=== PATIENT | male | born 1950 | race Caucasian/White ===

== ENCOUNTER 2017-11-27 06:24 | Emergency (ER) | payer MEDICARE ==
[~2017-11-27] VITALS: Ht 177.8 cm; Wt 79.4 kg
[2017-11-27 07:48] LABS: Urine Bacteria NONE SEEN /hpf (None Seen); Urine Blood Negative /uL (Negative); Urine Specific Gravity 1.007 (1.001-1.035); Urine WBC <1 /hpf (0 - 3)
[2017-11-27 08:20] LABS: Albumin 2.8 g/dL (3.4-5.0); Anion Gap 8 (5-15); Basophils # (auto) 0.1 uL; Basophils % (auto) 1.2 % (0.0-2.0); Blood Urea Nitrogen 10 mg/dL (7-18); Calcium 7.8 mg/dL (8.5-10.1); Carbon Dioxide 23 mmol/L (21-32); Chloride 109 mmol/L (98-107); Eosinophils # (auto) 0.1 uL; Eosinophils % (auto) 2.4 % (0.0-7.0); Glucose 95 mg/dL (74-106); Hematocrit 42.1 % (41.0-53.0); Hemoglobin 14.6 g/dL (13.5-17.5); Lymphocytes % (auto) 20.9 % (10.0-50.0); Mean Corpuscular Hemoglobin 31.9 pg (28.0-32.0); Mean Corpuscular Hgb Conc. 34.7 g/dL (32.0-36.0); Monocytes # (auto) 0.5 uL; Monocytes % (auto) 10.1 % (0.0-12.0); Neutrophils # (auto) 3.1 uL; Neutrophils % (auto) 65.4 % (37.0-80.0); Nucleated Red Blood Cells % 0.1 %; Platelet Count (auto) 156 10^3/uL (140-450); Potassium 4.4 mmol/L (3.5-5.1); Red Blood Cells 4.57 10^6/uL (4.5-5.90); Sodium 140 mmol/L (136-145); White Blood Cell 4.8 10^3/uL (4.4-10.8)
[2017-11-27 08:22] LABS: Alanine Aminotransferase 20 U/L (16-61); BUN/Creatinine Ratio 19.2; GFR African American 205 mL/min; GFR Non-African American 170 mL/min
[2017-11-27] MEDS ORDERED: ONDANSETRON HCL 4 MG/2 ML VIAL IV ONE (08:30)
[2017-11-27] MEDS ORDERED: MORPHINE SULF INJ 2 MG/ML SYRINGE 1ML IV ONE (08:30)
[2017-11-27 08:35] LABS: Alkaline Phosphatase 85 U/L (45-117); Aspartate Aminotransferase 11 U/L (15-37); Bilirubin, Total 0.2 mg/dL (0.2-1.0); Total Protein 6.1 g/dL (6.4-8.2)
[2017-11-27 08:36] LABS: INR 1.09 (0.9-1.15); Partial Thromboplastin Time 28.2 sec (23.78-33.04); Prothrombin Time 11.6 sec (9.27-12.13)
[2017-11-27 09:04] VITALS: BP 129/82
== END 2017-11-27 10:26 | disposition home or self-care (01) ==
LOC: ER 06:37
DX: R07.89 Other chest pain (principal); Z86.73 Personal history of transient ischemic attack (TIA), and cerebral infarction without residual deficits; Z98.61 Coronary angioplasty status; R51 Headache
CPT/HCPCS: 36415; 70450; 71046; 80053; 81001; 84484; 85025; 85610; 85730; 93005; 96374; 96375; 99285; J2270; J2405

== ENCOUNTER 2019-06-22 13:33 | Emergency (ER) | payer OTHER ==
[~2019-06-22] VITALS: Ht 182.9 cm; Wt 79.4 kg
[2019-06-22 14:11] VITALS: BP 128/83
[2019-06-22] MEDS ORDERED: SODIUM CHLORIDE 0.9% 1,000 ML IVB ONE (14:31)
[2019-06-22] MEDS ORDERED: MORPHINE SULFATE 4 MG/ML SYR/VIAL IV ONE (14:45)
[2019-06-22] MEDS ORDERED: ASPirin 81 mg TAB PO ONE (14:45)
[2019-06-22] MEDS ORDERED: ONDANSETRON HCL 4 MG/2 ML VIAL IV ONE (14:45)
[2019-06-22 15:10] LABS: Basophils # (auto) 0.1 10 ^3/uL (0-0.2); Basophils % (auto) 1.4 % (0.0-2.0); Eosinophils # (auto) 0.1 10 ^3/uL (0-0.8); Eosinophils % (auto) 1.4 % (0.0-7.0); Hematocrit 42.8 % (41.0-53.0); Hemoglobin 14.8 g/dL (13.5-17.5); Lymphocytes # (auto) 1.3 10 ^3/uL (0.4-5.4); Mean Corpuscular Hemoglobin 32.6 pg (28.0-32.0); Mean Corpuscular Hgb Conc. 34.5 g/dL (32.0-36.0); Mean Corpuscular Volume 94.4 fL (80.0-100.0); Monocytes # (auto) 0.7 10 ^3/uL (0-1.3); Monocytes % (auto) 9.4 % (0.0-12.0); Neutrophils # (auto) 4.8 10 ^3/uL (1.6-8.6); Neutrophils % (auto) 68.8 % (37.0-80.0); Nucleated Red Blood Cells % 0.1 %; Platelet Count (auto) 202 10^3/uL (140-450); Red Blood Cells 4.53 10^6/uL (4.5-5.90); Red Cell Distribution Width 15.9 % (11.8-14.3)
[2019-06-22 15:29] LABS: Albumin 3.3 g/dL (3.4-5.0); Anion Gap 4 (5-15); Blood Urea Nitrogen 9 mg/dL (7-18); Calcium 8.3 mg/dL (8.5-10.1); Carbon Dioxide 25 mmol/L (21-32); Chloride 106 mmol/L (98-107); Glucose 97 mg/dL (74-106); Magnesium 2.2 mg/dL (1.6-2.6); Potassium 4.3 mmol/L (3.5-5.1); Sodium 135 mmol/L (136-145)
[2019-06-22 15:34] LABS: Alanine Aminotransferase 17 U/L (16-61); Alkaline Phosphatase 105 U/L (45-117); Aspartate Aminotransferase 13 U/L (15-37); BUN/Creatinine Ratio 15.8; Bilirubin, Total 0.3 mg/dL (0.2-1.0); GFR African American 174 mL/min; GFR Non-African American 144 mL/min; Total Protein 6.9 g/dL (6.4-8.2)
== END 2019-06-22 15:54 | disposition other institution (70) ==
LOC: EDBD 13:33 → EDUNIT# 13:33 → ER 13:33
DX: I24.9 Acute ischemic heart disease, unspecified (principal); I11.0 Hypertensive heart disease with heart failure; I50.9 Heart failure, unspecified; E78.5 Hyperlipidemia, unspecified; I25.2 Old myocardial infarction; Z86.73 Personal history of transient ischemic attack (TIA), and cerebral infarction without residual deficits
CPT/HCPCS: 36415; 71045; 80053; 83735; 84484; 85025; 93005; 96374; 96375; 99285; J2270; J2405; 96361

== ENCOUNTER 2019-10-15 12:37 | Inpatient (IN) | payer OTHER ==
[~2019-10-15] VITALS: Ht 180.3 cm; Wt 78.2 kg
[~2019-10-15 12:37] MED LIST: CLOP75TA28 PO; GABA300C10 PO; LEVE100012 PO; LISI-648 PO; METO25TA93 PO; NITR1SPR TL; PANT40TA2 PO; PHE100C PO; RANO500T PO; TAMS0.4C36 PO
[2019-10-15] MEDS ORDERED: SODIUM CHLORIDE 0.9% 1,000 ML IV ONE ×2 (12:38)
[2019-10-15 15:13] LABS: Basophils # (auto) 0.1 10 ^3/uL (0-0.2); Basophils % (auto) 0.6 % (0.0-2.0); Eosinophils # (auto) 0 10 ^3/uL (0-0.8); Hematocrit 36.6 % (41.0-53.0); Hemoglobin 12.4 g/dL (13.5-17.5); Lymphocytes # (auto) 0.9 10 ^3/uL (0.4-5.4); Lymphocytes % (auto) 7.7 % (10.0-50.0); Mean Corpuscular Hemoglobin 31.6 pg (28.0-32.0); Mean Corpuscular Hgb Conc. 33.8 g/dL (32.0-36.0); Mean Corpuscular Volume 93.6 fL (80.0-100.0); Monocytes # (auto) 1.1 10 ^3/uL (0-1.3); Monocytes % (auto) 9.2 % (0.0-12.0); Neutrophils # (auto) 10.2 10 ^3/uL (1.6-8.6); Neutrophils % (auto) 82.5 % (37.0-80.0); Platelet Count (auto) 184 10^3/uL (140-450); Red Blood Cells 3.91 10^6/uL (4.5-5.90); Red Cell Distribution Width 14.3 % (11.8-14.3); White Blood Cell 12.3 10^3/uL (4.4-10.8)
[2019-10-15 15:19] LABS: Albumin 3.4 g/dL (3.4-5.0); Calcium 8.7 mg/dL (8.5-10.1); Potassium 4.1 mmol/L (3.5-5.1)
[2019-10-15 15:24] LABS: BUN/Creatinine Ratio 39.1; Bilirubin, Total 0.8 mg/dL (0.2-1.0); Total Protein 6.8 g/dL (6.4-8.2)
[2019-10-15] MEDS ORDERED: NITROGLYCERIN 0.4 MG SL TAB SL PRN (17:15)
[2019-10-15] MEDS ORDERED: MORPHINE SULF INJ 2 MG/ML SYRINGE 1ML IV PRN (17:15)
[2019-10-15] MEDS ORDERED: ACETAMINOPHEN 325 MG TAB PO PRN (17:15)
[2019-10-15] MEDS: SODIUM CHLORIDE 0.9% 1,000 ML IV SCH (18:02)
[2019-10-15 18:30] LABS: INR 1.18 (0.9-1.15); Partial Thromboplastin Time 29.3 sec (23.64-32.05)
[2019-10-15] MEDS: MORPHINE SULF INJ 2 MG/ML SYRINGE 1ML IV PRN (21:15)
[2019-10-15 21:30] VITALS: BP 125/70
--- NOTE | 2019-10-15 21:30 | NUR ---
Opening note Telemetry admit from ER YOSELYN LEO admitted to Telemetry unit after SBAR received. Patient oriented to MEGHAN REID, RN primary RN, unit, room, bed, and unit policies regarding patient care and visiting hours. Patient now on continuous telemetry monitoring, tele box # 51 and telemetry reading on arrival to unit is NSR HR 86. Patient placed on bedside oxygen, weighed by bedscale and encouraged to call if they need something. All questions and concerns addressed, patient verbalized understanding. will continue to monitor.
--- NOTE | 2019-10-15 21:59 | NUR ---
pain Patient states pain 10/10. entire body. Medicated per md orders. Will continue to monitor.
[2019-10-15 23:19] VITALS: BP 125/70
[2019-10-16] MEDS: SODIUM CHLORIDE 0.9% 1,000 ML IV SCH ×2 (01:15→08:40)
[2019-10-16] MEDS: MORPHINE SULF INJ 2 MG/ML SYRINGE 1ML IV PRN (02:03)
[2019-10-16 02:27] LABS: Urine Bacteria MANY /hpf (None Seen); Urine Blood TRACE /uL (Negative); Urine Mucus FEW (None Seen); Urine Specific Gravity 1.023 (1.001-1.035); Urine WBC 110 /hpf (0 - 3)
--- NOTE | 2019-10-16 02:30 | NUR ---
Pain Patient states pain 10/10 entire body. mainly right side. Medicated per md orders. Will continue to monitor.
[2019-10-16] MEDS: HYDROcodone-ACET 10/325MG TAB PO PRN ×2 (03:25→22:35)
--- NOTE | 2019-10-16 03:30 | NUR ---
Pain Patient states Pain 610. Medicated with norco. Will continue to monitor.
--- NOTE | 2019-10-16 03:45 | NUR ---
Jones catheter insertion Patient assessed and determined to be in need of jones catheter. Order obtained from MD. Patient educated on catheter and reason for insertion. All questions answered. Jones catheter 16 guage Romanian inserted with clean sterile technique. Patient tolerated well. will continue to monitor.
--- NOTE | 2019-10-16 04:30 | NUR ---
Pain reassessment patient states pain 4/10. patient is comfortable. Will continue to monitor.
[2019-10-16 05:18] VITALS: BP 137/73
[2019-10-16 06:28] LABS: Basophils # (auto) 0 10 ^3/uL (0-0.2); Basophils % (auto) 0.4 % (0.0-2.0); Eosinophils # (auto) 0 10 ^3/uL (0-0.8); Eosinophils % (auto) 0.2 % (0.0-7.0); Hematocrit 31.2 % (41.0-53.0); Lymphocytes # (auto) 1.1 10 ^3/uL (0.4-5.4); Lymphocytes % (auto) 10.9 % (10.0-50.0); Mean Corpuscular Hemoglobin 32.6 pg (28.0-32.0); Mean Corpuscular Hgb Conc. 35.2 g/dL (32.0-36.0); Mean Corpuscular Volume 92.6 fL (80.0-100.0); Monocytes % (auto) 9.4 % (0.0-12.0); Neutrophils # (auto) 8.3 10 ^3/uL (1.6-8.6); Neutrophils % (auto) 79.1 % (37.0-80.0); Platelet Count (auto) 162 10^3/uL (140-450); Red Blood Cells 3.37 10^6/uL (4.5-5.90); Red Cell Distribution Width 13.8 % (11.8-14.3); White Blood Cell 10.5 10^3/uL (4.4-10.8)
[2019-10-16 06:47] LABS: Albumin 3.1 g/dL (3.4-5.0); Calcium 8.3 mg/dL (8.5-10.1); Potassium 4.1 mmol/L (3.5-5.1)
[2019-10-16 06:52] LABS: Bilirubin, Total 0.6 mg/dL (0.2-1.0); Total Protein 6.4 g/dL (6.4-8.2)
--- NOTE | 2019-10-16 07:30 | NUR ---
CLOSING NOTE ENDORSED CARE TO DAY SHIFT RN
--- NOTE | 2019-10-16 07:31 | NUR ---
Opening Shift Note Assumed care of patient, resting in bed with eyes closed. No S/S of distress/SOB or pain. Bed is set in lowest locked position with side rails up x 2 for safety and call light is within reach. Will continue to monitor for changes Q1hr and PRN.
[2019-10-16 08:34] VITALS: BP 116/75
--- NOTE | 2019-10-16 08:47 | NUR ---
Attempted to call family member, Jorge No answer, left message to voicemail to return call. Phone number and extension provided in message. Awaiting call back.
[2019-10-16] MEDS ORDERED: ENOXAPARIN SOD 40 MG/0.4 ML SYRINGE SC SCH (10:00)
--- NOTE | 2019-10-16 10:56 | NUR ---
Left second voicemail for family member Jorge to return call Awaiting call back. In addition, attempted to call Sharri, no answer, voicemail left with phone number and extension to hospital in message.
--- NOTE | 2019-10-16 11:34 | NUR ---
Cardiology consultation for pre-op medical clearance MD Culp at bedside for consultation. Per MD, patient is medically clear to proceed with surgical procedure from cardiology standpoint. Will proceed to update MD Monahan.
--- NOTE | 2019-10-16 12:18 | NUR ---
Spoke to patient's son, Jorge Dragan Patel on surgical procedure, all questions answered at this time.
[2019-10-16 12:23] VITALS: BP 165/69
--- NOTE | 2019-10-16 13:01 | NUR ---
MD Monahan and Jacinta at bedside for rounds Patient updated on plan of care and discussed plans for procedure today. All questions answered at this time.
--- NOTE | 2019-10-16 14:25 | NUR ---
Patient off unit taken down to pre-op for procedure No distress noted upon departure. IV flushed prior and is intact/patent. Care endorsed to ALBA Mullins.
[2019-10-16] MEDS: ceFAZolin 1GM/50ML 100 ML IV ONE (14:58)
[2019-10-16] MEDS ORDERED: ROCURONIUM 10MG/ML 10ML VIAL IV ONE (15:11)
[2019-10-16] MEDS ORDERED: ETOMIDATE (2MG/ML) 20ML VIAL IV ONE (15:11)
[2019-10-16] MEDS ORDERED: LIDOCAINE 1% (LOCAL ANESTH.) PF 5ml SDV ONE ×2 (15:11→15:37)
[2019-10-16] MEDS ORDERED: fentaNYL CITRATE 100 MCG/2 ML VL ONE (15:29)
[2019-10-16] MEDS ORDERED: STERILE WATER 10 ML ONE (15:44)
[2019-10-16] MEDS ORDERED: ePHEDrine SULFATE 50 MG/ML AMP ONE (15:44)
[2019-10-16] MEDS ORDERED: ONDANSETRON HCL 4 MG/2 ML VIAL IV PRN (15:45)
[2019-10-16] MEDS ORDERED: NALOXONE HCL 0.4 MG/ML VIAL IV PRN (15:45)
[2019-10-16] MEDS ORDERED: HYDROmorphone HCL 2 MG/ML VL IV PRN (15:45)
[2019-10-16] MEDS ORDERED: BUPIVACAINE W/ EPINEPH 0.25% INJ 50ML MDV ONE (15:46)
[2019-10-16] MEDS ORDERED: BUPIVACAINE 0.25% INJ 50ML VIAL ONE (15:46)
[2019-10-16] MEDS ORDERED: BUPIVACAINE W/ EPINEPH 0.25% INJ 50ML MDV ID ONE (16:00)
[2019-10-16] MEDS ORDERED: ACETAMINOPHEN 325 MG TAB PO PRN (16:15)
--- NOTE | 2019-10-16 17:15 | NUR ---
Patient returned to floor from PACU No distress/SOB or pain noted. Patient is currently resting in bed with eyes closed with bed set in lowest locked position, side rails up x 2 for safety and call light is within reach. Noted two aqua-seal dressings applied to right hip which are C/D/I, pedal pulses palpated bilaterally. Patient's breaths are even and unlabored, currently on 3L/min NC. Will continue to monitor patient.
[2019-10-16] MEDS: PANTOPRAZOLE 40 MG/10 ML VIAL INJ IV SCH (17:23)
[2019-10-16 17:28] VITALS: BP 133/75
[2019-10-16] MEDS: ceFAZolin 1GM/50ML 50 ML IV SCH ×2 (17:52→22:21)
[2019-10-16] MEDS: LACTATED RINGER'S 1,000 ML IV SCH (17:52)
--- NOTE | 2019-10-16 18:21 | NUR ---
Re-paged MD Culp To make MD aware of change in rhythm during procedure per report from MANAGER EXCHANGE. Awaiting call back at this time.
--- NOTE | 2019-10-16 19:30 | NUR ---
Opening Shift Note Assumed care of patient, sleeping when this RN first entered room. No S/S of distress/SOB or pain. Upon waking, pt looking about as if unsure of what he saw. Upon questioning, pt responded he was at home. RN stated, "No..." and pt immediately stated, "No, I am in the hospital" and immediately stated name of hospital. This RN instructed pt on POC and to call for assist PRN, will continue to monitor for changes Q1hr and PRN. Dressing on pt's R hip CD&I. Bed low with HOB in semi-Singh's position.
[2019-10-16 22:30] VITALS: BP 128/73
[2019-10-17] MEDS: LACTATED RINGER'S 1,000 ML IV SCH ×3 (02:09→21:58)
[2019-10-17] MEDS: ceFAZolin 1GM/50ML 50 ML IV SCH (04:15)
[2019-10-17] MEDS: MORPHINE SULF INJ 2 MG/ML SYRINGE 1ML IV PRN ×3 (05:10→21:50)
[2019-10-17] MEDS: ONDANSETRON HCL 4 MG/2 ML VIAL IV PRN ×2 (05:10→05:48)
[2019-10-17 05:30] VITALS: BP 128/74
[2019-10-17 06:43] LABS: Basophils # (auto) 0 10 ^3/uL (0-0.2); Basophils % (auto) 0.4 % (0.0-2.0); Eosinophils # (auto) 0.1 10 ^3/uL (0-0.8); Eosinophils % (auto) 0.9 % (0.0-7.0); Hematocrit 27.4 % (41.0-53.0); Hemoglobin 9.5 g/dL (13.5-17.5); Lymphocytes # (auto) 0.8 10 ^3/uL (0.4-5.4); Lymphocytes % (auto) 10.8 % (10.0-50.0); Mean Corpuscular Hemoglobin 32.3 pg (28.0-32.0); Mean Corpuscular Hgb Conc. 34.8 g/dL (32.0-36.0); Mean Corpuscular Volume 92.6 fL (80.0-100.0); Monocytes # (auto) 0.8 10 ^3/uL (0-1.3); Monocytes % (auto) 10.4 % (0.0-12.0); Neutrophils # (auto) 6.1 10 ^3/uL (1.6-8.6); Neutrophils % (auto) 77.5 % (37.0-80.0); Platelet Count (auto) 154 10^3/uL (140-450); Red Blood Cells 2.96 10^6/uL (4.5-5.90); Red Cell Distribution Width 13.7 % (11.8-14.3); White Blood Cell 7.8 10^3/uL (4.4-10.8)
[2019-10-17 06:57] LABS: Albumin 2.6 g/dL (3.4-5.0); Calcium 7.9 mg/dL (8.5-10.1); Magnesium 2.1 mg/dL (1.6-2.6); Potassium 3.7 mmol/L (3.5-5.1)
[2019-10-17 07:16] LABS: BUN/Creatinine Ratio 39.5; Bilirubin, Total 0.6 mg/dL (0.2-1.0); Total Protein 5.6 g/dL (6.4-8.2)
--- NOTE | 2019-10-17 07:30 | NUR ---
Opening Shift Note RECEIVED REPORT FROM NOC RN. Assumed care of patient, awake and alert. PATIENT ON OXYGEN AT 3 LPM VIA NASAL CANNULA WITH no S/S of distress/SOB or pain. BED IN LOWEST, LOCKED POSITION WITH SIDERAILS UP x2 AND CALL LIGHT WITHIN REACH. Instructed on POC and to call for assist PRN, will continue to monitor for changes Q1hr and PRN.
[2019-10-17 09:44] VITALS: BP 119/65
[2019-10-17] MEDS: PANTOPRAZOLE 40 MG/10 ML VIAL INJ IV SCH (10:31)
[2019-10-17] MEDS ORDERED: ENOXAPARIN SOD 40 MG/0.4 ML SYRINGE SC ONE (11:00)
[2019-10-17] MEDS: cefTRIAXone 1GM/50ML D5W 50 ML IV SCH (12:37)
[2019-10-17] MEDS: HYDROcodone-ACET 10/325MG TAB PO PRN (13:54)
[2019-10-17 17:21] VITALS: BP 107/48
--- NOTE | 2019-10-17 17:30 | NUR ---
PATIENT IS NEGATIVE FOR SARS-CoV-2 PER IN-HOUSE TESTING.
--- NOTE | 2019-10-17 19:14 | NUR ---
RECEIVED PATIENT FROM DAY SHIFT RN. PATIENT RESTING IN BED. NO S/S OF DISTRESS NOTED. C/O PAIN @ 10/10 WHEN MOVING. WILL COME BACK FOR MEDICATION LATER WHEN PATIENT REQUESTS. REORIENTED PATIENT PLACE AND TIME. PEREIRA CATH IN PLACE DRAINING TO GRAVITY. DRESSING ON RIGHT HIP C/D/I. POC INSTRUCTED AND ENCOURAGED PATIENT TO CALL FOR PATIENT SVCS MGR IF NEEDED. BED IN LOWEST POSITION WITH SIDE RAILS UP X 2.CALL VINSON WITHIN REACH. ALARM ON. CONTINUE TO MONITOR FOR CHANGES Q1H AND PRN.
[2019-10-17] MEDS ORDERED: HYDROcodone-ACET 10/325MG TAB PO PRN (21:30)
--- NOTE | 2019-10-17 21:48 | NUR ---
IV insertion IV access obtained, via clean sterile technique by inserting [22] gauge catheter at [LFA] after [1] attempt(s). IV secured properly. No trauma to site. Patient tolerated well. IV LEAKING ON LW AND removal IV DC'd with clean sterile technique, catheter fully intact. Pressure dressing applied to site. Patient tolerated well. NOTE:
--- NOTE | 2019-10-17 21:50 | NUR ---
MEDICATED PATIENT FOR PAIN @ 10/10 ORDERED. CONTINUE TO MONITOR.
[2019-10-17 22:00] VITALS: BP 105/67
--- NOTE | 2019-10-17 22:15 | NUR ---
REASSESSED PATIENT, NO C/O PAIN AT THIS TIME. CONTINUE TO MONITOR.
--- NOTE | 2019-10-18 01:58 | NUR ---
REORIENTED PATIENT ON PLACE, TIME, AND SITUATION. PATIENT KEPT PULLING HIS PEREIRA CATH. STOPPED PATIENT, AND PUT PATIENT ON MITTENS. CONTINUE TO MONITOR.
[2019-10-18 05:26] VITALS: BP 115/70
[2019-10-18 06:09] LABS: Basophils # (auto) 0.1 10 ^3/uL (0-0.2); Basophils % (auto) 0.8 % (0.0-2.0); Eosinophils # (auto) 0.1 10 ^3/uL (0-0.8); Eosinophils % (auto) 1.2 % (0.0-7.0); Hematocrit 28.3 % (41.0-53.0); Hemoglobin 9.9 g/dL (13.5-17.5); Lymphocytes # (auto) 1.4 10 ^3/uL (0.4-5.4); Lymphocytes % (auto) 14.6 % (10.0-50.0); Mean Corpuscular Hemoglobin 32.3 pg (28.0-32.0); Mean Corpuscular Volume 92.2 fL (80.0-100.0); Monocytes # (auto) 1.1 10 ^3/uL (0-1.3); Monocytes % (auto) 11.3 % (0.0-12.0); Neutrophils # (auto) 6.9 10 ^3/uL (1.6-8.6); Neutrophils % (auto) 72.1 % (37.0-80.0); Nucleated Red Blood Cells % 0.1 %; Platelet Count (auto) 195 10^3/uL (140-450); Red Blood Cells 3.07 10^6/uL (4.5-5.90); Red Cell Distribution Width 13.8 % (11.8-14.3); White Blood Cell 9.5 10^3/uL (4.4-10.8)
[2019-10-18 06:39] LABS: Potassium 3.8 mmol/L (3.5-5.1)
[2019-10-18 07:04] LABS: Albumin 2.7 g/dL (3.4-5.0); BUN/Creatinine Ratio 29.8; Bilirubin, Total 0.8 mg/dL (0.2-1.0); Magnesium 1.9 mg/dL (1.6-2.6); Total Protein 5.7 g/dL (6.4-8.2)
[2019-10-18 09:00] VITALS: BP 104/70
[2019-10-18] MEDS: LACTATED RINGER'S 1,000 ML IV SCH ×2 (10:00→18:09)
[2019-10-18] MEDS: PANTOPRAZOLE 40 MG/10 ML VIAL INJ IV SCH (10:01)
[2019-10-18] MEDS: cefTRIAXone 1GM/50ML D5W 50 ML IV SCH (10:01)
[2019-10-18] MEDS: ENOXAPARIN SOD 40 MG/0.4 ML SYRINGE SC SCH (10:01)
[2019-10-18] MEDS: MORPHINE SULF INJ 2 MG/ML SYRINGE 1ML IV PRN ×2 (11:22→16:55)
--- NOTE | 2019-10-18 12:29 | NUR ---
MD Called Spoke with Dr. Workman regarding patient status and mental state. MD notified of patient pulling on IV and sitter status. Orders received for SS consult for SNF placement. Patient to remain in hospital today. MD to follow up with patient today.
--- NOTE | 2019-10-18 15:46 | NUR ---
assessment Patient is a 68 year old male who is confused. Per patients son Jorge [phone] who is POA prior to admission patient lived home alone and was independent. Jorge informed me patient had a fall at home in his garage and fractured his hip. Jorge patients son is requesting rehab prior to patient returning home. Patient has a fww and a cane for home use. Patients PCP is Dr Lagunas. I informed Jorge I will continue to monitor and follow up as appropriate and I will ask for rehab/SNF order from MD. Patel verbalized understanding and agreed to discharge plan to SNF. Addendum: 10/18/19 at 1550 by Amy ESQUIVEL Amended: Links added.
[2019-10-18] MEDS ORDERED: CLOPIDOGREL BISULFATE 75 MG TAB PO ONE (16:00)
--- NOTE | 2019-10-18 16:01 | NUR ---
at Station Dr. Workman at station, per MD, resume home medications and obtain AM phenytoin labs. Patient possible discharge tomorrow to SNF.
[2019-10-18 17:00] VITALS: BP 143/83
[2019-10-18] MEDS ORDERED: TAMSULOSIN HYDROCHLORIDE 0.4 MG CAP PO SCH (18:00)
--- NOTE | 2019-10-18 18:03 | NUR ---
Epic Radiant Analyst Recieved call from Hien regarding tele strip. Patient had run of bigeminal PVCs.
--- NOTE | 2019-10-18 18:03 | NUR ---
Called MD Spoke with Dr. Monahan regarding patient pulling off dressing. Per MD, place any adhesive dressing at site.
--- NOTE | 2019-10-18 18:10 | NUR ---
Called Wound Care Consulted with wound care nurseErrol requesting adhesive dressing for incision site. Obtained dressing for incision site.
--- NOTE | 2019-10-18 18:30 | NUR ---
Paged Hospitalist Paged Hospitalist.
--- NOTE | 2019-10-18 18:30 | NUR ---
New Dressing New dressing applied to right hip incision site. Patient tolerated well. Will continue to monitor.
--- NOTE | 2019-10-18 18:56 | NUR ---
Returned Call New orders received.
[2019-10-18] MEDS ORDERED: METOPROLOL TARTRATE 50 MG TAB PO ONE (19:00)
--- NOTE | 2019-10-18 19:07 | NUR ---
Called Spoke with Dr. Workman, notified of bigeminal PVCs, new orders received, will continue to monitor.
--- NOTE | 2019-10-18 19:37 | NUR ---
Closing Note Report given to NOC RN. RN aware of new orders, endorsed new orders.
[2019-10-18] MEDS ORDERED: POTASSIUM CHL 20 Meq TABLET PO ONE (19:45)
--- NOTE | 2019-10-18 19:59 | NUR ---
RECEIVED PATIENT FROM DAY SHIFT RN. PATIENT RESTING IN BED. NO S/S OF DISTRESS NOTED. NO C/O PAIN AT THIS TIME. REORIENTED PATIENT PLACE AND TIME. PEREIRA CATH IN PLACE DRAINING TO GRAVITY. DRESSING ON RIGHT HIP C/D/I. POC INSTRUCTED AND ENCOURAGED PATIENT TO CALL FOR WELL PULLER HEAD IF NEEDED. BED IN LOWEST POSITION WITH SIDE RAILS UP X 2.CALL VINSON WITHIN REACH. ALARM ON. SITTER AT BEDSIDE FOR SAFETY. CONTINUE TO MONITOR FOR CHANGES Q1H AND PRN.
[2019-10-18 20:58] VITALS: BP 143/85
[2019-10-18] MEDS: MAGNESIUM SULFATE 1GM/100ML 100 ML IV SCH ×2 (21:17→23:10)
[2019-10-18] MEDS: levETIRAcetam 500 MG TAB PO SCH (21:54)
[2019-10-18] MEDS: METOPROLOL TARTRATE 25 MG TAB PO SCH (21:54)
[2019-10-18] MEDS: PHENYTOIN SODIUM 100 MG CAP PO SCH (21:54)
[2019-10-18] MEDS: RANOLAZINE ER 500 MG TAB PO SCH (21:55)
[2019-10-18] MEDS: GABAPENTIN 300 MG CAP PO SCH (21:55)
--- NOTE | 2019-10-18 22:00 | NUR ---
SCHEDULED MEDICATION GIVEN ORDERED. PATIENT SWALLOWED WELL. NO S/S OF ASPIRATION NOTED. CONTINUE TO MONITOR.
--- NOTE | 2019-10-19 02:56 | NUR ---
PATIENT SLEEPING. NO S/S OF DISTRESS NOTED. SITTER AT BEDSIDE FOR SAFETY. CONTINUE TO MONITOR.
[2019-10-19] MEDS: LACTATED RINGER'S 1,000 ML IV SCH ×2 (04:09→14:09)
--- NOTE | 2019-10-19 04:51 | NUR ---
CLEANED PATIENT, TOTAL LINEN AND PATIENT GOWN CHANGED. PATIENT TOLERATED WELL. CONTINUE CARE.
[2019-10-19 05:22] VITALS: BP 132/61
[2019-10-19] MEDS: GABAPENTIN 300 MG CAP PO SCH ×2 (05:24→14:37)
[2019-10-19] MEDS: PHENYTOIN SODIUM 100 MG CAP PO SCH ×2 (05:24→14:37)
[2019-10-19 07:08] LABS: Basophils # (auto) 0 10 ^3/uL (0-0.2); Basophils % (auto) 0.6 % (0.0-2.0); Eosinophils # (auto) 0.2 10 ^3/uL (0-0.8); Eosinophils % (auto) 2.8 % (0.0-7.0); Hematocrit 27.8 % (41.0-53.0); Hemoglobin 9.9 g/dL (13.5-17.5); Lymphocytes % (auto) 12.9 % (10.0-50.0); Mean Corpuscular Hemoglobin 32.2 pg (28.0-32.0); Mean Corpuscular Hgb Conc. 35.5 g/dL (32.0-36.0); Mean Corpuscular Volume 90.7 fL (80.0-100.0); Monocytes # (auto) 0.9 10 ^3/uL (0-1.3); Monocytes % (auto) 12.2 % (0.0-12.0); Neutrophils # (auto) 5.4 10 ^3/uL (1.6-8.6); Neutrophils % (auto) 71.5 % (37.0-80.0); Platelet Count (auto) 203 10^3/uL (140-450); Red Blood Cells 3.07 10^6/uL (4.5-5.90); Red Cell Distribution Width 13.5 % (11.8-14.3); White Blood Cell 7.6 10^3/uL (4.4-10.8)
[2019-10-19 07:29] LABS: Calcium 8.1 mg/dL (8.5-10.1); Potassium 3.7 mmol/L (3.5-5.1)
--- NOTE | 2019-10-19 07:30 | NUR ---
Opening Note Assumed patient care from NOC RN. Patient currently resting in bed with eyes closed, laying supine. Respirations even and unlabored on 2L nasal cannula. No signs of distress at this time, safety precautions in place with sitter at bedside. Urine is draining into jones catheter, clear and yellow. Will continue to monitor.
[2019-10-19 07:35] LABS: BUN/Creatinine Ratio 23.5; Magnesium 2.2 mg/dL (1.6-2.6)
[2019-10-19] MEDS: cefTRIAXone 1GM/50ML D5W 50 ML IV SCH (08:10)
[2019-10-19 08:24] VITALS: BP 129/64
[2019-10-19] MEDS: RANOLAZINE ER 500 MG TAB PO SCH (09:56)
[2019-10-19] MEDS: PANTOPRAZOLE 40 MG/10 ML VIAL INJ IV SCH (09:57)
[2019-10-19] MEDS: levETIRAcetam 500 MG TAB PO SCH (09:57)
[2019-10-19] MEDS: METOPROLOL TARTRATE 25 MG TAB PO SCH (09:57)
[2019-10-19] MEDS: ENOXAPARIN SOD 40 MG/0.4 ML SYRINGE SC SCH (09:58)
[2019-10-19] MEDS ORDERED: CLOPIDOGREL BISULFATE 75 MG TAB PO SCH (10:00)
[2019-10-19] MEDS ORDERED: METOPROLOL TARTRATE 25 MG TAB PO SCH (10:00)
[2019-10-19] MEDS ORDERED: LISINOPRIL 10 MG TAB PO SCH (10:00)
--- NOTE | 2019-10-19 11:00 | NUR ---
at Station Dr. Workman at station per MD, patient to discharge to SNF.
--- NOTE | 2019-10-19 12:03 | NUR ---
Nutrition Assessment Notes Please refer to link for full assessment notes. Est Energy needs: 7025-6225 kcals (23-25 kcal/kgBW) Est Protein needs: 78-86 gms/day (1.0-1.1 gm/kgBW) Will continue to monitor and reassess prn. Addendum: 10/19/19 at [address] Amended: Links added.
--- NOTE | 2019-10-19 12:04 | NUR ---
SS Call Received call from child protective services social worker, Silvana. Per Silvana patient has been accepted to [facility] room 204 bed 1, accepting LING Marquez to transport.
--- NOTE | 2019-10-19 12:16 | NUR ---
Called MD Called MD regarding SNF placement and discharge order, new orders received.
--- NOTE | 2019-10-19 12:20 | NUR ---
D/C Planning Per consult for SNF placement. Faxed clinical information to [facility] and [facility]. Per Evonne with [facility] [phone] patient has been accepted to room 204 bed 1 accepting MD, Dr. Selvin Ortiz . Faxed clinical information to [facility] requesting authorization for [facility]. Per Sofia authorization for SNF is [id number] and [facility] [id number]. [facility] [phone] has been arranged via [employer] with a 16:30 machine operator picker time. ALBA Mahan was informed.
[2019-10-19 12:38] VITALS: BP 131/78
--- NOTE | 2019-10-19 13:30 | NUR ---
Family Notified Spoke with son, Jorge Landry, password verified. Patient currently unable to sign. Obtained consent for transfer from son; patient name and date of confirmed, witnessed by ALBA Mejia. Contact information and room number for SNF provided to son.
[2019-10-19 14:39] VITALS: BP 131/78
--- NOTE | 2019-10-19 15:01 | NUR ---
Called for Report Called [facility] to give report. Addendum: 10/19/19 at 1605 by LYLE RUFF RN RN SBAR given to Katherine. Hassan aware of follow up appointment with Dr. Monahan, copy of appointment information also provided in transfer paperwork.
[2019-10-19] MEDS: MORPHINE SULF INJ 2 MG/ML SYRINGE 1ML IV PRN (15:16)
--- NOTE | 2019-10-19 16:43 | NUR ---
Discharge Discharge instructions given as ordered. Encourage to follow up with PMD as instructed. All questions and concerns addressed. Patient verbalized understanding. Medication reconciliation form completed and copy given to patient. IV removed with catheter intact, pressure dressing applied, jones catheter removed. Patient taken to vehicle via gurney with all personal belongings, accompanied by transport staff. No distress noted at time of departure. Addendum: 10/19/19 at 1644 by LYLE RUFF RN RN Wrong Time 1628 Addendum: 10/19/19 at 1723 by LYLE RUFF RN RN Telemetry box removed and returned to ICU.
== END 2019-10-19 16:28 | DRG 480 ==
LOC: MERGE 12:37 → ER 12:37 → EDBD 12:37 → TELE 12:38 → TELE-WESTW 20:13
PROVIDERS: ADMIT Internal Medicine; ATTEND Internal Medicine
PROC: 0QU Lower Bones, Supplement (ICD-10-PCS; 2019-10-16)
PROC: 8E0Y3EZ Fluorescence Guided Procedure of Lower Extremity, Percutaneous Approach (ICD-10-PCS; 2019-10-16)
PROC: 0QS634Z Reposition Right Upper Femur with Internal Fixation Device, Percutaneous Approach (ICD-10-PCS; principal; 2019-10-16 15:05)
DX: S72.141A Displaced intertrochanteric fracture of right femur, initial encounter for closed fracture (principal); G93.41 Metabolic encephalopathy; M62.82 Rhabdomyolysis; N39.0 Urinary tract infection, site not specified; I49.3 Ventricular premature depolarization; G62.9 Polyneuropathy, unspecified; I25.10 Atherosclerotic heart disease of native coronary artery without angina pectoris; G30.9 Alzheimer's disease, unspecified; F02.80 Dementia in other diseases classified elsewhere, unspecified severity, without behavioral disturbance, psychotic disturbance, mood disturbance, and anxiety; G40.909 Epilepsy, unspecified, not intractable, without status epilepticus; I11.0 Hypertensive heart disease with heart failure; I48.91 Unspecified atrial fibrillation; I50.9 Heart failure, unspecified; W18.39XA Other fall on same level, initial encounter; K21.9 Gastro-esophageal reflux disease without esophagitis; E78.5 Hyperlipidemia, unspecified; N40.0 Benign prostatic hyperplasia without lower urinary tract symptoms; M81.0 Age-related osteoporosis without current pathological fracture; Z95.5 Presence of coronary angioplasty implant and graft; Z79.02 Long term (current) use of antithrombotics/antiplatelets; Y93.89 Activity, other specified; Y92.89 Other specified places as the place of occurrence of the external cause; Y99.8 Other external cause status; Z82.3 Family history of stroke; Z82.49 Family history of ischemic heart disease and other diseases of the circulatory system; Z83.3 Family history of diabetes mellitus; Z86.73 Personal history of transient ischemic attack (TIA), and cerebral infarction without residual deficits; Z79.899 Other long term (current) drug therapy; Z11.59 Encounter for screening for other viral diseases
CPT/HCPCS: 36415; 70450; 71045; 72125; 72192; 73502; 76000; 80048; 80053; 80185; 81001; 82550; 83735; 83880; 84484; 85025; 85610; 85730; 86850; 86900; 86901; 93005; 97110; 97163; 97530; 99291; A4565; A6198; C1713; C9113; G0378; J0690; J0696; J2405; J3490

== ENCOUNTER 2020-04-10 12:49 | Emergency (ER) | payer MEDICARE, OTHER ==
[~2020-04-10] VITALS: Ht 172.7 cm; Wt 72.6 kg
[2020-04-10] MEDS ORDERED: IBUPROFEN 600 MG TAB PO ONE ×2 (17:23→21:45)
[2020-04-10 18:00] VITALS: BP 132/82
== END 2020-04-10 18:00 | disposition home or self-care (01) ==
LOC: EDBD 12:49 → ER 12:49
DX: S40.011A Contusion of right shoulder, initial encounter (principal); S09.8XXA Other specified injuries of head, initial encounter; I11.0 Hypertensive heart disease with heart failure; I50.9 Heart failure, unspecified; K21.9 Gastro-esophageal reflux disease without esophagitis; E78.5 Hyperlipidemia, unspecified; I25.2 Old myocardial infarction; Z86.73 Personal history of transient ischemic attack (TIA), and cerebral infarction without residual deficits; W01.0XXA Fall on same level from slipping, tripping and stumbling without subsequent striking against object, initial encounter; Y93.89 Activity, other specified; Y92.89 Other specified places as the place of occurrence of the external cause; Y99.8 Other external cause status
CPT/HCPCS: 70450; 73030; 93005

== ENCOUNTER 2021-01-09 11:49 | Inpatient (IN) | payer OTHER ==
[~2021-01-09] VITALS: Ht 175.3 cm; Wt 65.8 kg
[~2021-01-09 11:49] MED LIST changes: -LISI-648 PO; +LISI-716 PO
[2021-01-09] MEDS ORDERED: SODIUM CHLORIDE 0.9% 1,000 ML IV ONE ×2 (12:00→18:45)
[2021-01-09 12:55] LABS: Basophils # (auto) 0.1 10 ^3/uL (0-0.2); Basophils % (auto) 1.1 % (0.0-2.0); Eosinophils % (auto) 7.2 % (0.0-7.0); Hematocrit 40.7 % (41.0-53.0); Hemoglobin 14.3 g/dL (13.5-17.5); Lymphocytes # (auto) 0.4 10 ^3/uL (0.4-5.4); Lymphocytes % (auto) 3.2 % (10.0-50.0); Mean Corpuscular Hemoglobin 31.4 pg (28.0-32.0); Mean Corpuscular Hgb Conc. 35.2 g/dL (32.0-36.0); Mean Corpuscular Volume 89.3 fL (80.0-100.0); Monocytes # (auto) 0.7 10 ^3/uL (0-1.3); Monocytes % (auto) 5.1 % (0.0-12.0); Neutrophils # (auto) 11.3 10 ^3/uL (1.6-8.6); Neutrophils % (auto) 83.4 % (37.0-80.0); Red Blood Cells 4.55 10^6/uL (4.5-5.90); Red Cell Distribution Width 14.2 % (11.8-14.3); White Blood Cell 13.5 10^3/uL (4.4-10.8)
[2021-01-09 13:14] LABS: INR 1.12 (0.9-1.15); Partial Thromboplastin Time 28.4 sec (23.6-33.0)
[2021-01-09 13:47] LABS: Albumin 3.3 g/dL (3.4-5.0); Calcium 9.2 mg/dL (8.5-10.1)
[2021-01-09 13:54] LABS: BUN/Creatinine Ratio 26.2; Bilirubin, Total 0.4 mg/dL (0.2-1.0); Total Protein 7.2 g/dL (6.4-8.2)
[2021-01-09 13:57] LABS: Potassium 2.9 mmol/L (3.5-5.1)
[2021-01-09 16:07] LABS: Urine Bacteria FEW /hpf (None Seen); Urine Blood Negative /uL (Negative); Urine Mucus FEW (None Seen); Urine Specific Gravity 1.021 (1.001-1.035); Urine WBC 2 /hpf (0 - 3)
[2021-01-09] MEDS ORDERED: LORazepam 2MG/ML-1ML VIAL ONE (17:09)
[2021-01-09] MEDS ORDERED: LORazepam 2MG/ML-1ML VIAL IV ONE (17:15)
[2021-01-09] MEDS: POTASSIUM CHL 20MEQ/100ML 100 ML IV SCH ×2 (17:23→18:50)
[2021-01-09] MEDS ORDERED: NITROGLYCERIN 0.4 MG SL TAB SL PRN (18:45)
[2021-01-09] MEDS ORDERED: MORPHINE SULFATE INJECTION 2 MG/ML SYRG IV PRN ×2 (18:45)
[2021-01-09] MEDS ORDERED: METOPROLOL SUCCINATE XL 50 MG TAB PO ONE (22:00)
[2021-01-09] MEDS: LORazepam 2MG/ML-1ML VIAL IV PRN ×3 (22:10→23:00)
[2021-01-09] MEDS: levETIRAcetam 500 MG TAB PO SCH (23:00)
[2021-01-09] MEDS: GABAPENTIN 300 MG CAP PO SCH (23:00)
[2021-01-09] MEDS: RANOLAZINE ER 500 MG TAB PO SCH (23:00)
[2021-01-09] MEDS: PHENYTOIN SODIUM 100 MG CAP PO SCH (23:00)
[2021-01-10 03:00] LABS: Basophils # (auto) 0.1 10 ^3/uL (0-0.2); Basophils % (auto) 1.4 % (0.0-2.0); Eosinophils # (auto) 0.1 10 ^3/uL (0-0.8); Eosinophils % (auto) 0.9 % (0.0-7.0); Hemoglobin 12.5 g/dL (13.5-17.5); Lymphocytes # (auto) 0.9 10 ^3/uL (0.4-5.4); Lymphocytes % (auto) 11.8 % (10.0-50.0); Mean Corpuscular Hgb Conc. 35.8 g/dL (32.0-36.0); Mean Corpuscular Volume 89.5 fL (80.0-100.0); Monocytes # (auto) 0.6 10 ^3/uL (0-1.3); Monocytes % (auto) 7.3 % (0.0-12.0); Neutrophils # (auto) 5.9 10 ^3/uL (1.6-8.6); Neutrophils % (auto) 78.6 % (37.0-80.0); Nucleated Red Blood Cells % 0.1 %; Red Blood Cells 3.91 10^6/uL (4.5-5.90); Red Cell Distribution Width 14.3 % (11.8-14.3); White Blood Cell 7.5 10^3/uL (4.4-10.8)
[2021-01-10 03:20] LABS: Calcium 7.5 mg/dL (8.5-10.1); Potassium 3.4 mmol/L (3.5-5.1)
[2021-01-10 03:22] LABS: BUN/Creatinine Ratio 27.8
[2021-01-10] MEDS: GABAPENTIN 300 MG CAP PO SCH ×2 (06:11→14:08)
[2021-01-10] MEDS: PHENYTOIN SODIUM 100 MG CAP PO SCH ×2 (06:13→14:08)
[2021-01-10] MEDS ORDERED: POTASSIUM CHL 20 Meq TABLET PO ONE (06:15)
[2021-01-10] MEDS ORDERED: CALCIUM GLUC 1,000mg/50ml-NS 50 ML IV ONE (06:15)
[2021-01-10] MEDS ORDERED: PANTOPRAZOLE 40 MG TAB PO SCH (10:00)
[2021-01-10] MEDS ORDERED: levoFLOXacin 500MG 100 ML IV SCH (10:00)
[2021-01-10] MEDS ORDERED: METOPROLOL SUCCINATE XL 50 MG TAB PO SCH (10:00)
[2021-01-10] MEDS: RANOLAZINE ER 500 MG TAB PO SCH (10:00)
[2021-01-10] MEDS ORDERED: LISINOPRIL 10 MG TAB PO SCH (10:00)
[2021-01-10] MEDS: levETIRAcetam 500 MG TAB PO SCH (10:15)
[2021-01-10] MEDS ORDERED: TAMSULOSIN HYDROCHLORIDE 0.4 MG CAP PO SCH (18:00)
[2021-01-10 20:22] VITALS: BP 96/51
== END 2021-01-10 20:24 | disposition hospice, home (50) | DRG 91 ==
LOC: ER 11:49 → EDBD 11:49 → TELE 18:36
PROVIDERS: ADMIT Nurse Practitioner Acute Care; ATTEND Internal Medicine
DX: G92 Toxic encephalopathy (principal); I21.4 Non-ST elevation (NSTEMI) myocardial infarction; E87.1 Hypo-osmolality and hyponatremia; E87.6 Hypokalemia; G40.909 Epilepsy, unspecified, not intractable, without status epilepticus; E78.5 Hyperlipidemia, unspecified; F03.90 Unspecified dementia, unspecified severity, without behavioral disturbance, psychotic disturbance, mood disturbance, and anxiety; I11.0 Hypertensive heart disease with heart failure; Z20.822 Contact with and (suspected) exposure to COVID-19; I25.10 Atherosclerotic heart disease of native coronary artery without angina pectoris; I67.2 Cerebral atherosclerosis; R29.6 Repeated falls; S00.81XA Abrasion of other part of head, initial encounter; S00.83XA Contusion of other part of head, initial encounter; D72.829 Elevated white blood cell count, unspecified; I50.9 Heart failure, unspecified; W18.39XA Other fall on same level, initial encounter; Y93.89 Activity, other specified; Y92.098 Other place in other non-institutional residence as the place of occurrence of the external cause; Y99.8 Other external cause status; Z90.89 Acquired absence of other organs; Z79.899 Other long term (current) drug therapy; Z82.3 Family history of stroke; Z82.49 Family history of ischemic heart disease and other diseases of the circulatory system; Z83.3 Family history of diabetes mellitus; Z86.73 Personal history of transient ischemic attack (TIA), and cerebral infarction without residual deficits; Z91.81 History of falling
CPT/HCPCS: 36415; 70450; 70486; 71045; 73060; 80048; 80053; 80185; 81001; 83605; 83735; 83880; 84484; 85025; 85610; 85730; 87040; 87086; 87426; 93005; 96361; 96365; 96375; 96376; G0378; J1956; J3480